=== PATIENT | female | born 1995 | race American Indian/Alaskan Native ===

== ENCOUNTER 2020-10-21 22:54 | Outpatient (CLI) | payer MEDICAID ==
[2020-10-21] MEDS ORDERED: LACTATED RINGERS 500 ML IV ONE (23:12)
[2020-10-21 23:17] VITALS: BP 109/60
[2020-10-22] MEDS ORDERED: LACTATED RINGERS 1,000 ML IV ONE (00:03)
[2020-10-22] MEDS ORDERED: NIFEdipine*For Tocolysis only* 10 MG CAPSULE PO ONE (01:00)
== END 2020-10-22 01:15 | disposition home or self-care (01) ==
LOC: TRG 22:54 → APU 22:57 → TRG 10-22 01:15
PROVIDERS: ATTEND Obstetrics & Gynecology
DX: O26.893 Other specified pregnancy related conditions, third trimester (principal); R10.9 Unspecified abdominal pain; O47.03 False labor before 37 completed weeks of gestation, third trimester; Z3A.30 30 weeks gestation of pregnancy
CPT/HCPCS: 59025; 96365; J0690; J7120; 96360

== ENCOUNTER 2020-11-28 21:51 | Outpatient (CLI) | payer MEDICAID ==
[2020-11-28 22:44] VITALS: BP 114/72
[2020-11-28] MEDS ORDERED: LACTATED RINGERS 1,000 ML IV ONE (23:01)
[2020-11-29] MEDS ORDERED: TERBUTALINE 1 MG/1 ML INJ SUB-Q ONE (00:06)
--- NOTE | 2020-11-29 00:32 | Vascular Lab Report ---
DUPLEX DOPPLER LOWER EXTREMITY VEINS, BILATERAL INDICATION / CLINICAL INFORMATION: Occasional bilateral discoloration of feet.. TECHNIQUE: Duplex doppler imaging was performed through the veins of both lower extremities using sienna ous compression and other maneuvers. COMPARISON: None available. FINDINGS: RIGHT COMMON FEMORAL VEIN: Negative. RIGHT FEMORAL VEIN: Negative. RIGHT POPLITEAL VEIN: Negative. RIGHT CALF VEINS: Negative. LEFT COMMON FEMORAL VEIN: Negative. LEFT FEMORAL VEIN: Negative. LEFT POPLITEAL VEIN: Negative. LEFT CALF VEINS: Negative. ADDITIONAL FINDINGS: None. IMPRESSION: 1. No sonographic evidence for DVT in either lower extremity. Signer Name: Storm Dee MD Signed: 11/29/2020 12:27 AM Workstation Name: [id number]
== END 2020-11-29 00:34 | disposition home or self-care (01) ==
LOC: TRG 21:51 → APU 21:53 → TRG 11-29 00:34
PROVIDERS: ATTEND Obstetrics & Gynecology
DX: O26.893 Other specified pregnancy related conditions, third trimester (principal); L60.8 Other nail disorders; O47.03 False labor before 37 completed weeks of gestation, third trimester; Z3A.35 35 weeks gestation of pregnancy
CPT/HCPCS: 59025; 93970; 96372; J3105

== ENCOUNTER 2020-12-12 13:49 | Outpatient (CLI) | payer MEDICAID ==
[2020-12-12 14:25] VITALS: BP 106/66
[2020-12-12] MEDS ORDERED: LACTATED RINGERS 500 ML IV ONE (15:26)
== END 2020-12-12 16:38 | disposition home or self-care (01) ==
LOC: APU 13:49 → TRG 13:49
PROVIDERS: ATTEND Obstetrics & Gynecology
DX: O62.9 Abnormality of forces of labor, unspecified (principal); O24.419 Gestational diabetes mellitus in pregnancy, unspecified control; O99.013 Anemia complicating pregnancy, third trimester; D64.9 Anemia, unspecified; Z3A.37 37 weeks gestation of pregnancy
CPT/HCPCS: 59025; 82962; 96360